=== PATIENT | female | born 1935 | race Caucasian/White ===

== ENCOUNTER 2018-10-03 22:20 | Inpatient (IN) | payer MEDICARE, BC ==
[~2018-10-03] VITALS: Ht 165.1 cm; Wt 72.6 kg
--- NOTE | 2018-10-03 22:28 | NUR ---
JATINDER FROM [facility] ASSTISTED LIVING. TO ER BED 10. AAOX3. NO RESP DISTRESS, BREATHING EVEN AND UNLABORED. AMBULATORY W/ ASSIST. C/O WITNESSED SYNCOPAL EPISODE. PER REPORT PT DID NOT HIT HER HEAD. NO NOTED VISUAL INJURY. PT ARRIVED WITH IV ON R WRIST 18G. EMS ADMINISTERED 500ML NS, COMPLETED ALREADY UPON ARRIVAL. BP WAS REPORTED AT 88/43. BS:130. AWAITING MD FOR EVAL. EKG BEING DONE AT BEDSIDE
--- NOTE | 2018-10-03 22:59 | NUR ---
AT BEDSIDE FOR EVAL
[2018-10-03] MEDS ORDERED: IV NS 0.9% 1,000 ML BAG IV ONE (23:00)
[2018-10-03 23:09] LABS: BASOPHILS % (AUTO) 0.3 % (0.0-2.0); EOSINOPHILS % (AUTO) 1.2 % (0.0-6.0); HEMATOCRIT 38 % (33-45); HEMOGLOBIN 12.7 g/dL (11.5-14.8); LYMPHOCYTES # (AUTO) 6.3 /CMM (0.8-4.8); LYMPHOCYTES % (AUTO) 62.3 % (20.0-44.0); MEAN CORPUSCULAR HGB CONC 34 g/dl (31.0-36.0); MEAN CORPUSCULAR VOLUME 97 fL (82-100); MONOCYTES # (AUTO) 0.4 /CMM (0.1-1.30); MONOCYTES % (AUTO) 4.1 % (2.0-12.0); NEUTROPHILS # (AUTO) 3.2 /CMM (1.8-8.9); NEUTROPHILS % (AUTO) 32.1 % (43.0-81.0); PLATELET COUNT (AUTO) 113 /CMM (150-450); WHITE BLOOD COUNT (AUTO) 10.1 K/uL (4.3-11.0)
--- NOTE | 2018-10-03 23:10 | NUR ---
pt to radiology on [facility]
[2018-10-03 23:16] LABS: CALCIUM, SERUM 8.4 mg/dL (8.5-10.1); CARBON DIOXIDE 31 mmol/L (21-32); CHLORIDE 105 mmol/L (98-107); CREATININE 1.9 mg/dL (0.6-1.3); GLUCOSE 89 mg/dL (74-106); POTASSIUM 4.3 mmol/L (3.5-5.1); SODIUM SERUM 139 mmol/L (136-145); UREA NITROGEN, BLOOD 22 mg/dL (7-18)
[2018-10-04] VITALS (7 sets, daily range): BP systolic 130–149; BP diastolic 61–77
--- NOTE | 2018-10-04 00:04 | NUR ---
pt in bed sleeping. easily arrousable.
--- NOTE | 2018-10-04 00:21 | NUR ---
Jose weiss in [facility] - 10/04/18 at 0022 by ANNABELLE BED ASSIGNMENT: TELE 314-2
--- NOTE | 2018-10-04 00:22 | NUR ---
BED ASSIGNMENT : 324-2
[2018-10-04] MEDS ORDERED: IV NS 0.9% 1,000 ML IV PRN ×2 (00:25→00:30)
[2018-10-04] MEDS ORDERED: ACETAMINOPHEN 325 MG TABLET PO PRN (00:30)
[2018-10-04] MEDS ORDERED: MAGNESIUM HYDROXIDE 30 ML UDC PO PRN (00:30)
[2018-10-04] MEDS ORDERED: MORPHINE SULFATE INJ 2 MG/ML DISP.SYRIN IV PRN (00:30)
[2018-10-04] MEDS ORDERED: ONDANSETRON HCL/PF 4 MG/2 ML VIAL IVP PRN (00:30)
[2018-10-04] MEDS ORDERED: MAG HYDROX/AL HYDROX/SIMETH 30 ML UDC PO PRN (00:30)
--- NOTE | 2018-10-04 00:32 | NUR ---
REPORT GIVEN TO JESSICA MIMS FOR JOSHUA. PT TO 324-2
--- NOTE | 2018-10-04 00:48 | NUR ---
PT TRANSPORTED TO UNIT ON [facility] WITH EMT AND RN AT BEDSIDE W. ACLS PROTOCOL. NAD NOTED DURING TRANSPORT.
--- NOTE | 2018-10-04 01:29 | NUR ---
AUTO DISMANTLERENERGY TECHNICIAN NOTES Received patient from ER via [facility] accompanied by 2 ER staff. Admitted to Tele 324-2 due to Syncope with secondary dx SARITA under the service of JEROMY Romeo. Transferred to bed comfortably. Admission routine done. Initial skin assessment done: noted dressing on LFA, patient refused to remove dressing for assessment due to pain. Per patient she got wound 1 month ago and is healing now. No other skin issues identified. Patient complaint headache. Administered pain meds as ordered. Ice pack provided, patient tolerating well. Initiated IVF NS 75ml/hr as ordered. On tele monitor with Sinus Armando (59bpm) noted. Kept on bed clean, dry and comfortable. Call light within easy reach. Will continue to monitor accordingly.
--- NOTE | 2018-10-04 01:30 | NUR ---
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
[2018-10-04] MEDS ORDERED: DULO60CA45 PO (01:32)
[2018-10-04] MEDS ORDERED: RIZA10TA27 PO (01:32)
[2018-10-04] MEDS ORDERED: TAMS-12 PO (01:32)
[2018-10-04] MEDS ORDERED: ROPI12TA PO (01:32)
[2018-10-04] MEDS ORDERED: BUSP15TA3 PO (01:32)
[2018-10-04] MEDS ORDERED: CARB-93 PO (01:32)
[2018-10-04] MEDS ORDERED: NALO25TA PO (01:32)
[2018-10-04] MEDS ORDERED: HYDR4TAB57 PO (01:32)
[2018-10-04] MEDS ORDERED: QUET100T PO (01:32)
[2018-10-04] MEDS ORDERED: ALPR1TAB2 PO (01:32)
[2018-10-04] MEDS ORDERED: LEVO112T5 PO (01:32)
[2018-10-04] MEDS ORDERED: GABA-534 PO (01:32)
--- NOTE | 2018-10-04 01:35 | NUR ---
SEWING MACHINE BOBBIN WINDER NOTES DPOA - (SON) ADRI [phone]. Patient is on DNR/DNI status with signed POLST copy at the patient's chart.
--- NOTE | 2018-10-04 06:45 | NUR ---
CORRECTIONAL FACILITY PSYCHIATRIST CLOSING NOTES Patient asleep on bed, easily awaken. On O2 via NC @ 2LPM, no SOB/respiratory distress noted. No discomfort noted at this time. On tele monitor with SR with second degree type 1 AVB. All nursing needs attended. Kept on bed clean, dry and comfortable. No new unusualities noted. Call light within easy reach. Endorsed to the next shift.
--- NOTE | 2018-10-04 07:45 | NUR ---
TELE/RN NOTE THE PATIENT IS ALERT AND ORIENTED X3 WITH EPISODES OF FORGETFULNESS. RECEIVING OXYGEN AT 2L/MIN VIA NASAL CANNULA AND DENIES SOB. RESPIRATION REGULAR AND UNLABORED. PATIENT COMPLAINS OF MIGRAINE HEADACHE AT THIS TIME. WILL INFORM MD FOR ORDERS. RIGHT WRIST G 18 PATENT AND SALINE LOCKED. BED LOW AND LOCKED. SIDE RAILS UP X3. CALL LIGHT WITHIN REACH. WILL CONTINUE TO MONITOR.
[2018-10-04] MEDS: HYDROCODONE/APAP 5/325MG 1 EACH TABLET PO PRN ×3 (07:46→17:40)
--- NOTE | 2018-10-04 08:50 | NUR ---
TELE/RN NOTE THE PATIENT VERBALIZED RELIEVE FROM NAUSEA AFTER ADMINISTRATION OF ZOFRAN 4 MG IV AND RELIEVE OF MIGRAINE HEADACHE RATING 2/10 AFTER ADMINISTRATION OF NORCO 5/325 MG 1 TAB PO. WILL CONTINUE TO MONITOR.
--- NOTE | 2018-10-04 09:35 | NUR ---
TELE/RN NOTE RECEIVED TEL ORDER FROM DR AMISHA MCCLAIN 10 MG PO Q6HR PRN FOR MIGRAINE. THE ORDER IS READ BACK, VERIFIED. NOTED AND CARRIED OUT.
[2018-10-04] MEDS: IV NS 0.9% 1,000 ML IV PRN (09:39)
[2018-10-04 10:15] LABS: BASOPHILS % (AUTO) 0.2 % (0.0-2.0); EOSINOPHILS % (AUTO) 1.1 % (0.0-6.0); HEMATOCRIT 38 % (33-45); HEMOGLOBIN 12.3 g/dL (11.5-14.8); LYMPHOCYTES # (AUTO) 5.7 /CMM (0.8-4.8); LYMPHOCYTES % (AUTO) 65.1 % (20.0-44.0); MEAN CORPUSCULAR HGB CONC 33 g/dl (31.0-36.0); MEAN CORPUSCULAR VOLUME 97 fL (82-100); MONOCYTES # (AUTO) 0.2 /CMM (0.1-1.30); MONOCYTES % (AUTO) 2.6 % (2.0-12.0); NEUTROPHILS # (AUTO) 2.7 /CMM (1.8-8.9); PLATELET COUNT (AUTO) 96 /CMM (150-450); WHITE BLOOD COUNT (AUTO) 8.7 K/uL (4.3-11.0)
[2018-10-04 10:21] LABS: CALCIUM, SERUM 8.1 mg/dL (8.5-10.1); CARBON DIOXIDE 26 mmol/L (21-32); CHLORIDE 104 mmol/L (98-107); CREATININE 1.1 mg/dL (0.6-1.3); GLUCOSE 108 mg/dL (74-106); POTASSIUM 3.9 mmol/L (3.5-5.1); SODIUM SERUM 139 mmol/L (136-145); UREA NITROGEN, BLOOD 18 mg/dL (7-18)
[2018-10-04 10:27] LABS: ALANINE AMINOTRANSFERASE 21 U/L (12-78); ALBUMIN 3.4 g/dL (3.4-5.0); ALKALINE PHOSPHATASE 76 U/L (46-116); ASPARTATE AMINOTRANSFERASE 19 U/L (15-37); BILIRUBIN,TOTAL 0.5 mg/dL (0.2-1.0); MAGNESIUM 1.8 mg/dL (1.8-2.4); PHOSPHORUS 3.7 mg/dL (2.5-4.9)
[2018-10-04] MEDS ORDERED: SUMATRIPTAN SUCCINATE 25 MG TABLET PO ONE (11:00)
[2018-10-04] MEDS ORDERED: ALPRAZOLAM 1 MG TABLET PO PRN (11:00)
--- NOTE | 2018-10-04 11:00 | NUR ---
TELE/REGENERATION OPERATOR BP BLOOD PRESSURE AND PULSE LYING DOWN: BP 141/79 AND PULSE 76 BLOOD PRESSURE AND PULSE STANDING UP: BP 140/79 AND PULSE 80 THE PATIENT DID NOT COMPLIANT OF DIZZINESS DURING POSITION CHANGES.
--- NOTE | 2018-10-04 12:13 | NUR ---
TELE/RN NOTE UPON ASSESSMENT NOTED THAT THE PATIENT HAS URGES TO VOID BUT PATIENT URINATES ONLY SMALL AMOUNT OF URINE. BLADDER SCAN PERFORMED AND SEEN [address] ALBA IS MADE AWARE AND RECEIVED AN ORDER FOR IN AND OUT PALMER CATH FOR URINE >500 ML. WILL CONTINUE TO MONITOR THE PATIENT CLOSELY.
[2018-10-04] MEDS: GABAPENTIN 300 MG CAPSULE PO SCH ×2 (13:16→16:25)
[2018-10-04] MEDS: CARBIDOPA/LEVODOPA 25/100 MG 1 UDTAB PO SCH ×2 (13:16→16:26)
[2018-10-04] MEDS: ropiniROLE 0.5 MG TABLET PO SCH ×2 (13:16→16:25)
--- NOTE | 2018-10-04 14:20 | NUR ---
TELE/RN NOTE UPON BLADDER SCAN NOTED URINE 700 ML. IN AND OUT PALMER CATH DONE AND TOTOAL OF 800 ML URINE IS REMOVED SLOWLY.
--- NOTE | 2018-10-04 14:34 | NUR ---
RN NOTES PULLED OUT NORCO 5, OPENED BUT PATIENT CHANGED HER MIND AND REFUSED THE NORCO 5. WASTED MEDICATION IN THE WASTE BIN WITNESSED BY JESSICA GONZALEZ.
--- NOTE | 2018-10-04 15:00 | NUR ---
MS/RN NOTE THE PATIENT IS ASSISTED TO SIT ON A COMMODE AND SHE URINATED 20 ML OF URINE.
--- NOTE | 2018-10-04 15:30 | NUR ---
TELE/RN NOTE THE PATIENT IS SEEN BY DR LION AND HE IS MADE AWARE THAT THE PATIENT HAD EPISODES OF CONFUSION TRYING TO GET OUT OF BET, REMOVING IV LINE AND NASAL CANNULA. DR LION WITH NO NEW ORDERS.
[2018-10-04 15:54] LABS: APPEARANCE,URINE CLEAR (CLEAR); BILIRUBIN,URINE NEGATIVE (NEGATIVE); BLOOD, URINE NEGATIVE Ery/uL (NEGATIVE); COLOR,URINE YELLOW (YELLOW); KETONES,URINE NEGATIVE (NEGATIVE); LEUKOCYTE ESTERASE ,URINE NEGATIVE (NEGATIVE); NITRITE, URINE NEGATIVE (NEGATIVE); PROTEIN,URINE NEGATIVE (NEGATIVE); UGLUCOSE NEGATIVE (NEGATIVE); UROBILINOGEN,URINE 0.2 EU/dL (0.2)
[2018-10-04 15:58] LABS: CREATININE, URINE 107.2 MG/DL (30.0-125.0); URINE TOTAL PROTEIN 22.1 mg/dL (0-11.9)
[2018-10-04] MEDS: busPIRone 5 MG TABLET PO SCH (16:27)
--- NOTE | 2018-10-04 16:40 | NUR ---
TELE/RN NOTE [id number] AGREED LFA WOUNDS SKIN ASSESSMENT AND PICTURES TO BE TAKEN.
[2018-10-04 16:57] LABS: EOSINOPHIL,URINE None Seen
--- NOTE | 2018-10-04 18:38 | NUR ---
TELE/RN CLOSING NOTE THE PATIENT IS IN BED AND THE SON AT THE BEDSIDE. PATIENT ALERT AND ORIENTED X3 WITH EPISODES OF TRYING TO GET OUT OF BED NOT REALIZING FALL RISK. THE PATIENT IS IN ROOM AIR AND SATURATION IS AT 96%. DENIES SOB.RESPIRATION REGULAR AND UNLABORED. DENIES PAIN. EXTERNAL TELE BOX READING IS SR 75 WITH 1ST DEGREE BLOCK. RIGHT WRIST G 18 PATENT AND SALINE LOCKED. THE PATIENT IS REFUSING IV FLUID NORMAL SALINE TO BE CONNECTED AT THIS TIME DESPITE EXPLAINING RISKS AND BENEFITS. BED LOW AND LOCKED. SIDE RAILS UP X3. SITTER AT THE BEDSIDE. CALL LIGHT WITHIN REACH. WILL ENDORSE TO ROLLER CHECKER.
--- NOTE | 2018-10-04 20:29 | NUR ---
TELE/RN PATIENT'S MILD AGITATION NOTED, SON REQUESTED FOR XANAX, BUT WHEN XANAX WAS ABOUT TO BE GIVEN, PATIENT REFUSED IT. WILL RETURN IT.
[2018-10-04] MEDS ORDERED: QUETIAPINE FUMARATE 100 MG TABLET PO SCH (22:00)
--- NOTE | 2018-10-04 22:28 | NUR ---
MS/RN PATIENT IS VERY AGITATED AT THIS TIME, HR IN 130'S, XANAX 1 MG PO WAS GIVEN ORDERED. WILL MONITOR.
--- NOTE | 2018-10-05 00:11 | NUR ---
MS/RN PATIENT IS SLEEPING AT THIS TIME, AROUSABLE, APPEAR COMFORTABLE, NO SIGNS OF DISTRESS NOTED, SITTER AT BEDSIDE. WILL CONTINUE TO MONITOR.
[2018-10-05] MEDS: IV NS 0.9% 1,000 ML IV PRN (01:36)
[2018-10-05 04:00] VITALS: BP 151/75
--- NOTE | 2018-10-05 06:17 | NUR ---
MS/RN BLADDER SCAN DONE, 999 MLS, STRAIGHT CATH WAS DONE ORDERED, 1,600 MLS OUTPUT, RENAE CLEAR URINE NOTED.
[2018-10-05 06:58] LABS: BASOPHILS % (AUTO) 0.1 % (0.0-2.0); EOSINOPHILS % (AUTO) 0.8 % (0.0-6.0); HEMATOCRIT 41 % (33-45); HEMOGLOBIN 13.5 g/dL (11.5-14.8); LYMPHOCYTES # (AUTO) 6.6 /CMM (0.8-4.8); LYMPHOCYTES % (AUTO) 68.9 % (20.0-44.0); MEAN CORPUSCULAR HGB CONC 33 g/dl (31.0-36.0); MEAN CORPUSCULAR VOLUME 96 fL (82-100); MONOCYTES # (AUTO) 0.2 /CMM (0.1-1.30); MONOCYTES % (AUTO) 2.3 % (2.0-12.0); NEUTROPHILS # (AUTO) 2.7 /CMM (1.8-8.9); NEUTROPHILS % (AUTO) 27.9 % (43.0-81.0); PLATELET COUNT (AUTO) 104 /CMM (150-450); RED BLOOD CELL COUNT(AUTO) 4.24 MIL/uL (4.0-5.2); WHITE BLOOD COUNT (AUTO) 9.6 K/uL (4.3-11.0)
--- NOTE | 2018-10-05 06:58 | NUR ---
MS/RN PATIENT IS AWAKE, COMFORTABLE, NO C/O PAIN, NO DISTRESS NOTED, SITTER AT BEDSIDE, ALL NEEDS ATTENDED AT THIS TIME, WILL CONTINUE TO MONITOR.
[2018-10-05 07:13] LABS: CHOLESTEROL 186 mg/dL (<200); CREATINE KINASE, TOTAL 308 U/L (26-192); HDL CHOLESTEROL 68 mg/dL (40-60); LDL 98 mg/dL (0-99); TRIGLYCERIDES 74 mg/dL (30-150)
[2018-10-05 07:27] LABS: ALANINE AMINOTRANSFERASE 22 U/L (12-78); ALBUMIN 3.7 g/dL (3.4-5.0); ALKALINE PHOSPHATASE 82 U/L (46-116); ASPARTATE AMINOTRANSFERASE 26 U/L (15-37); BILIRUBIN,TOTAL 0.6 mg/dL (0.2-1.0); CALCIUM, SERUM 8.8 mg/dL (8.5-10.1); CARBON DIOXIDE 27 mmol/L (21-32); CHLORIDE 108 mmol/L (98-107); CREATININE 0.9 mg/dL (0.6-1.3); GLUCOSE 94 mg/dL (74-106); MAGNESIUM 1.6 mg/dL (1.8-2.4); PHOSPHORUS 2.5 mg/dL (2.5-4.9); POTASSIUM 3.8 mmol/L (3.5-5.1); SODIUM SERUM 144 mmol/L (136-145); TOTAL PROTEIN, SERUM 6.6 g/dL (6.4-8.2); UREA NITROGEN, BLOOD 11 mg/dL (7-18)
[2018-10-05] MEDS ORDERED: LEVOTHYROXINE SODIUM 112 MCG TABLET PO SCH (07:30)
--- NOTE | 2018-10-05 07:36 | NUR ---
ACQUISITION MANAGER OPENINGS NOTE RECEIVED PT AWAKE IN BED IN NO ACUTE SIGNS OF DISTRESS. 1;1 SITTER AT BEDSIDE. A/O X2-3. VERBALLY RESPONSIVE, DENIES, PAIN OR ANY DISCOMFORTS AT THIS TIME. ON 02 VIA N/C @ 2LPM, BREATHING EVEN AND UNLABORED. ON TELEMONITORING WITH CURRENT READING OF SB WITH 1ST DEGREE HEART BLOCK WITH HR OF 57, NO C/O CARDIAC DISTRESS VOICED. IV ACCESS ON RFA G#22 INTACT AND PATENT, IVF OF NS @ 125ML/HR INFUSING WELL, NO S/S OF INFILTRATIONS NOTED. SAFETY MEASURES IN PLACE. BED LOW AND LOCKED. SIDE RAILS UP X3. CALL LIGHT WITHIN REACH. WILL CONTINUE TO MONITOR PT ACCORDINGLY.
[2018-10-05 08:00] VITALS: BP 134/78
[2018-10-05] MEDS: GABAPENTIN 300 MG CAPSULE PO SCH ×2 (08:22→13:03)
[2018-10-05] MEDS: ropiniROLE 0.5 MG TABLET PO SCH ×2 (08:22→13:04)
[2018-10-05] MEDS: CARBIDOPA/LEVODOPA 25/100 MG 1 UDTAB PO SCH ×2 (08:23→13:04)
[2018-10-05] MEDS: busPIRone 5 MG TABLET PO SCH (08:23)
[2018-10-05] MEDS ORDERED: DULOXETINE HCL 30 MG CAPSULE.DR PO SCH (09:00)
[2018-10-05] MEDS ORDERED: TAMSULOSIN 0.4 MG CAP.SR.24H PO SCH (09:00)
--- NOTE | 2018-10-05 09:19 | NUR ---
RN NOTES PT SEEN AND EVALUATED BY DR OLIVARES WITH ORDER TO CHECK ORTHOSTATIC BP: LYING 156/100, SITTING 119/68 AND STANDING 138/62. DR OLIVARES MADE AWARE OF RESULTS.
[2018-10-05] MEDS: HYDROCODONE/APAP 5/325MG 1 EACH TABLET PO PRN (09:28)
--- NOTE | 2018-10-05 09:30 | NUR ---
RN NOTES//PAIN MANAGEMENT PT C/O ACHING ABDOMINAL PAIN WITH SCALE OF 6/10. PRN NORCO 5/325MG PO GIVEN AT 0928. WILL CONTINUE TO MONITOR AND REASSESS PT.
[2018-10-05 09:43] VITALS: BP 156/100
[2018-10-05] MEDS ORDERED: VALSARTAN 80 MG TABLET PO SCH (10:00)
[2018-10-05] MEDS: Magnesium 1GM/D5W 100ML PREMIX 100 ML IV SCH ×2 (10:24→11:52)
--- NOTE | 2018-10-05 11:00 | NUR ---
RN NOTES MD ORDERED 80MG VALSARTAN, SON AT BEDSIDE REFUSED, SPOKE TO AND AGREED TO GIVE 40MG INSTEAD OF 80MG. HALF TABLET GIVEN BY MOUTH. WILL CONTINUE TO MONITOR
--- NOTE | 2018-10-05 12:54 | NUR ---
RN NOTES LON NOTED WIT LOW LEVEL MAGNESIUM 1.6. ADMINISTERED MG 1 GM/D5W 100ML IVPB X2 BAGS ORDERED. WILL CONTINUE TO MONITOR.
--- NOTE | 2018-10-05 15:10 | NUR ---
RN DISCHARGED NOTES PATIENT DISCHARGED TO [facility] ASSIST[facility] LIVING IN STABLE CONDITION. PT IS A/O X3, VERBALLY RESPONSIVE WITH NO COMPLAINED VOICE DURING DISCHARGE. V/S CHECKED, STABLE AND RECORDED. PHOTO OF SKIN ISSUES TAKEN AND FILED ON CHART. ALL BELONGINGS ACCOUNTED FOR AND SIGNED FORM BY JORDANA RUSH. IV ACCESS REMOVED WITH NO BLEEDING NOTED, PRESSURE DRESSING APPLIED. NAME ARMBAND REMOVED. HEALTH /DISCHARGE INSTRUCTIONS GIVEN TO PT AND SON, BOTH VERBALIZED UNDERSTANDING. PT LEFT UNIT VIA WHEELCHAIR AT 1505 ACCOMPANIED BY WINDOWS VMWARE ENGINEER AND JORDANA RUSH. CHARGE NURSE AWARE OF DISCHARGE.
[2018-10-06 13:07] LABS: PTH, INTACT 63 pg/mL (15-65)
[2018-10-07 06:07] LABS: *SPE A/G RATIO 1.5 (0.7-1.7); *SPE ALBUMIN 3.7 g/dL (2.9-4.4); *SPE ALPHA-1-GLOBULIN 0.3 g/dL (0.0-0.4); *SPE ALPHA-2-GLOBULIN 0.7 g/dL (0.4-1.0); *SPE BETA GLOBULIN 0.8 g/dL (0.7-1.3); *SPE GLOBULIN, TOTAL 2.4 g/dL (2.2-3.9); *SPE M-SPIKE Not Observed g/dL (Not Observed); *SPEGAMMA GLOBULIN 0.7 g/dL (0.4-1.8)
== END 2018-10-05 15:30 | DRG 73 ==
LOC: ER 22:22 → TELE 10-04 00:21 → MED 10-05 10:33
PROVIDERS: ADMIT Nurse Practitioner Acute Care; ATTEND Nurse Practitioner Acute Care
DX: G90.8 Other disorders of autonomic nervous system (principal); N17.0 Acute kidney failure with tubular necrosis; E03.9 Hypothyroidism, unspecified; F02.80 Dementia in other diseases classified elsewhere, unspecified severity, without behavioral disturbance, psychotic disturbance, mood disturbance, and anxiety; G20 Parkinson's disease; D72.829 Elevated white blood cell count, unspecified; I10 Essential (primary) hypertension; Z88.8 Allergy status to other drugs, medicaments and biological substances; I44.0 Atrioventricular block, first degree; F32.9 Major depressive disorder, single episode, unspecified; N28.1 Cyst of kidney, acquired
CPT/HCPCS: 36415; 70450-TC; 71045-TC; 76770-TC; 80048-TC; 80053-TC; 80061-TC; 81000-TC; 82550-TC; 82570-TC; 82962-TC; 83735-TC; 83970; 84100-TC; 84155; 84155-TC; 84165; 84300-TC; 84484-TC; 85025-TC; 87081-TC; 93307-TC; 97110-TC; 97116-TC; 97530-TC; G0378; J2405; J3475; J7030

== ENCOUNTER 2018-10-06 05:13 | Inpatient (IN) | payer MEDICARE, OTHER, MEDICAID ==
[~2018-10-06] VITALS: Ht 162.6 cm; Wt 69.9 kg
[~2018-10-06 05:13] MED LIST: ALPR1TAB2 PO; BUSP15TA3 PO; CARB-93 PO; DULO60CA45 PO; GABA-534 PO; HYDR4TAB57 PO; LEVO112T5 PO; NALO25TA PO; QUET100T PO; RIZA10TA27 PO; ROPI12TA PO; TAMS-12 PO
--- NOTE | 2018-10-06 05:29 | NUR ---
BIBA FOR C/O R HIP PAIN S/P GLF. PT WAS FOUND ON THE FLOOR BY STAFF FACE DOWN. PER PT SHE TRIPED ON FOOT OVER THE OTHER . DENIED KO OR LOOSING CONCIOUS. PLACED ON A MONITOR. VSS.
--- NOTE | 2018-10-06 06:09 | NUR ---
dr schmitz at the bed side speaking to the pt and the son
[2018-10-06] MEDS ORDERED: ONDANSETRON HCL/PF 4 MG/2 ML VIAL ONE (06:28)
[2018-10-06] MEDS ORDERED: ACETAMINOPHEN ES 500 MG TABLET ONE (06:29)
[2018-10-06] MEDS ORDERED: ACETAMINOPHEN ES 500 MG TABLET PO ONE (06:30)
[2018-10-06] MEDS ORDERED: ONDANSETRON HCL/PF - ER 4 MG/2 ML VIAL IV ONE (06:30)
[2018-10-06 07:07] LABS: BASOPHILS % (AUTO) 0.1 % (0.0-2.0); EOSINOPHILS % (AUTO) 0.2 % (0.0-6.0); HEMATOCRIT 41 % (33-45); HEMOGLOBIN 13.8 g/dL (11.5-14.8); LYMPHOCYTES # (AUTO) 6.7 /CMM (0.8-4.8); LYMPHOCYTES % (AUTO) 60.6 % (20.0-44.0); MEAN CORPUSCULAR HGB CONC 33 g/dl (31.0-36.0); MEAN CORPUSCULAR VOLUME 95 fL (82-100); MONOCYTES # (AUTO) 0.3 /CMM (0.1-1.30); MONOCYTES % (AUTO) 2.3 % (2.0-12.0); NEUTROPHILS # (AUTO) 4.1 /CMM (1.8-8.9); NEUTROPHILS % (AUTO) 36.8 % (43.0-81.0); PLATELET COUNT (AUTO) 109 /CMM (150-450); RED BLOOD CELL COUNT(AUTO) 4.35 MIL/uL (4.0-5.2); WHITE BLOOD COUNT (AUTO) 11.1 K/uL (4.3-11.0)
[2018-10-06 07:13] LABS: CALCIUM, SERUM 9.2 mg/dL (8.5-10.1); CARBON DIOXIDE 25 mmol/L (21-32); CHLORIDE 104 mmol/L (98-107); CREATININE 0.9 mg/dL (0.6-1.3); GLUCOSE 114 mg/dL (74-106); POTASSIUM 3.6 mmol/L (3.5-5.1); SODIUM SERUM 141 mmol/L (136-145); UREA NITROGEN, BLOOD 14 mg/dL (7-18)
[2018-10-06 07:18] LABS: ALANINE AMINOTRANSFERASE 13 U/L (12-78); ALBUMIN 4.1 g/dL (3.4-5.0); ALKALINE PHOSPHATASE 82 U/L (46-116); ASPARTATE AMINOTRANSFERASE 25 U/L (15-37); BILIRUBIN,DIRECT 0.2 mg/dL (0.0-0.2); BILIRUBIN,TOTAL 0.7 mg/dL (0.2-1.0); TOTAL PROTEIN, SERUM 7.2 g/dL (6.4-8.2)
[2018-10-06 07:26] LABS: APPEARANCE,URINE CLEAR (CLEAR); BILIRUBIN,URINE NEGATIVE (NEGATIVE); BLOOD, URINE NEGATIVE Ery/uL (NEGATIVE); COLOR,URINE YELLOW (YELLOW); KETONES,URINE 1+ (NEGATIVE); LEUKOCYTE ESTERASE ,URINE TRACE (NEGATIVE); NITRITE, URINE NEGATIVE (NEGATIVE); PROTEIN,URINE TRACE mg/dl (NEGATIVE); UGLUCOSE NEGATIVE (NEGATIVE); UROBILINOGEN,URINE 0.2 EU/dL (0.2)
[2018-10-06 07:47] LABS: BACTERIA,URINE Many /HPF (None Seen); RBC,URINE 0-2 /HPF (0-2); SQUAMOUS EPITHELIAL CELL,UR Few /HPF (None Seen); WBC,URINE 21-50 /HPF (0-3)
[2018-10-06] MEDS ORDERED: CEFTRIAXONE 1GM BAG (ER ONLY) 1 GM/50 ML PIGGYBACK IV ONE (08:30)
[2018-10-06] MEDS ORDERED: CEFTRIAXONE 1GM BAG (ER ONLY) 50 ML IV ONE (08:38)
[2018-10-06] MEDS ORDERED: ASPIRIN EC 81 MG TABLET.DR PO ONE ×2 (09:30→09:34)
--- NOTE | 2018-10-06 11:00 | NUR ---
[facility] PAGED. ERICA GOULD ON-CALL. AWAITING FOR CALL BACK.
--- NOTE | 2018-10-06 11:05 | NUR ---
CALLED NURSING SUP FOR BED TELE
--- NOTE | 2018-10-06 11:25 | NUR ---
BED 113-2
--- NOTE | 2018-10-06 12:39 | NUR ---
report given to Antonio LOPEZ for mallorie.
[2018-10-06] MEDS ORDERED: MAGNESIUM HYDROXIDE 30 ML UDC PO PRN (13:00)
[2018-10-06] MEDS ORDERED: MAG HYDROX/AL HYDROX/SIMETH 30 ML UDC PO PRN (13:00)
[2018-10-06] MEDS ORDERED: Z GUARD REMEDY 2 OZ OINT TP PRN (13:00)
[2018-10-06 13:03] VITALS: BP 169/87
--- NOTE | 2018-10-06 13:19 | NUR ---
Transferred patient via gurney accompanied by RN and emt in no apparent distress noted. Antonio at bedside to assume care.
[2018-10-06] MEDS: CARBIDOPA/LEVODOPA 25/100 MG 1 UDTAB PO SCH ×2 (13:48→17:49)
[2018-10-06] MEDS: ropiniROLE 0.5 MG TABLET PO SCH ×2 (13:48→17:48)
[2018-10-06] MEDS: GABAPENTIN 300 MG CAPSULE PO SCH ×2 (13:48→17:49)
[2018-10-06] MEDS: ONDANSETRON HCL/PF 4 MG/2 ML VIAL IVP PRN (14:59)
[2018-10-06 16:00] VITALS: BP 124/72
--- NOTE | 2018-10-06 16:00 | NUR ---
SHOW CARD LETTEREREXTERMINATION INSPECTOR NOTE RECEIVED PATIENT FROM [facility] ER. REPORT TAKEN FROM ELA. PATIENT A/O X 1-2, NO SOB OR ACUTE DISTRESS NOTED. BREATHING EVEN AND UNLABORED. PATIENT ADMITTED FOR UTI. CAREGIVER AT BEDSIDE. PATIENT CLEAN AND DRY USING DIAPER. SKIN INSPECTED AND FOUND INTACT. NO C/O PAIN. MEDICATIONS ORDERED AND GIVEN ORDERED. SAFETY MEASURES IN PLACE. BED IN LOW LOCKED POSITION, CALL LIGHT WITHIN REACH, BED ALARM ON. WILL CONTINUE TO MONITOR.
--- NOTE | 2018-10-06 17:00 | NUR ---
LOADING UNIT OPERATOR CRIMPING NOTE PATIENT SON AT BEDSIDE. PATIENT BECOMING AGITATED AND TRYING TO GET OUT OF BED. SITTER PLACED AT BEDSIDE. PATIENT RETURNED TO BED, MADE COMFORTABLE. PATIENT GIVEN MEDICATIONS ORDERED.
[2018-10-06] MEDS: DOCUSATE SODIUM 100 MG CAPSULE PO SCH (17:48)
[2018-10-06] MEDS: busPIRone 5 MG TABLET PO SCH (17:49)
--- NOTE | 2018-10-06 19:18 | NUR ---
Met with son at bedside. Readmitted within 24hours. Patient resides at [facility] [phone].She has a caregiver 3-4hours/day 3-4days/week. Patient ambulates with a walker and caregiver provides assistance with adl's as needed. Her pcp is Monserrat at [facility] tel: [phone]. Family is considering SNF placement if needed. If patient goes to SNF, son prefers [facility]. Addendum: 10/06/18 at 1919 by JAYLON PADILLA RN Amended: Links added.
[2018-10-06 20:00] VITALS: BP 141/90
--- NOTE | 2018-10-06 20:00 | NUR ---
television anchor notes received pts awake alert and agitated , with 1:1 sitter at bedside . on tele - sr and ist degree block on the monitor. no sob no distress noted . breathing even and unlabored on r/a sating 94%, v/s stable afebrile , all due meds given as ordered , all needs attended too call light within reach kept pts clean dry and comfortable, will continue to monitor pts . son at bedside updated with pts condition.
--- NOTE | 2018-10-06 20:11 | NUR ---
SERVICE UNIT OPERATOR OIL WELL CLOSING NOTE PATIENT IN BED AND AWAKE. A/O X 1-2, NO SOB OR ACUTE DISTRESS NOTED. BREATHING EVEN AND UNLABORED. SON AT BEDSIDE. PATIENT CLEAN AND DRY USING DIAPER. IV SL INTACT AND PATENT. . NO C/O PAIN. SAFETY MEASURES IN PLACE. BED IN LOW LOCKED POSITION, CALL LIGHT WITHIN REACH, BED ALARM ON. CARE ENDORSED TO PLANTING MATERIAL REMOVER RN.
[2018-10-06] MEDS: ALPRAZOLAM 1 MG TABLET PO PRN (20:15)
[2018-10-06] MEDS: QUETIAPINE FUMARATE 100 MG TABLET PO SCH (21:30)
[2018-10-07 00:59] VITALS: BP 125/80
[2018-10-07 04:00] VITALS: BP 107/54
[2018-10-07 07:13] LABS: BASOPHILS % (AUTO) 0.1 % (0.0-2.0); EOSINOPHILS % (AUTO) 0.6 % (0.0-6.0); HEMATOCRIT 42 % (33-45); LYMPHOCYTES # (AUTO) 4.7 /CMM (0.8-4.8); LYMPHOCYTES % (AUTO) 56.5 % (20.0-44.0); MEAN CORPUSCULAR HGB CONC 33 g/dl (31.0-36.0); MEAN CORPUSCULAR VOLUME 96 fL (82-100); MONOCYTES # (AUTO) 0.2 /CMM (0.1-1.30); MONOCYTES % (AUTO) 2.1 % (2.0-12.0); NEUTROPHILS # (AUTO) 3.4 /CMM (1.8-8.9); NEUTROPHILS % (AUTO) 40.7 % (43.0-81.0); PLATELET COUNT (AUTO) 84 /CMM (150-450); WHITE BLOOD COUNT (AUTO) 8.3 K/uL (4.3-11.0)
[2018-10-07 07:23] LABS: CALCIUM, SERUM 9.1 mg/dL (8.5-10.1); CARBON DIOXIDE 26 mmol/L (21-32); CHLORIDE 104 mmol/L (98-107); CREATININE 0.9 mg/dL (0.6-1.3); GLUCOSE 115 mg/dL (74-106); MAGNESIUM 1.8 mg/dL (1.8-2.4); PHOSPHORUS 3.1 mg/dL (2.5-4.9); POTASSIUM 3.6 mmol/L (3.5-5.1); SODIUM SERUM 140 mmol/L (136-145); UREA NITROGEN, BLOOD 18 mg/dL (7-18)
[2018-10-07 07:33] LABS: CHOLESTEROL 180 mg/dL (<200); HDL CHOLESTEROL 68 mg/dL (40-60); LDL 92 mg/dL (0-99); THYROID STIMULATING HORMONE 3.168 uIU/mL (0.358-3.74); TRIGLYCERIDES 97 mg/dL (30-150)
[2018-10-07 08:00] VITALS: BP 139/75
[2018-10-07 08:01] LABS: NEUTROPHILS % (MANUAL) 38 (42-76)
[2018-10-07 08:02] LABS: BAND % (MANUAL) 6 % (0.0-5.0); LYMPHOCYTES % (MANUAL) 45 % (16-48); MONOCYTES % (MANUAL) 11 % (0-11.0)
--- NOTE | 2018-10-07 09:00 | NUR ---
satellite television installer notes received pts awake alert and agitated , with 1:1 sitter at bedside . on tele - sr and ist degree block on the monitor. no sob no distress noted . breathing even and unlabored on ra/, v/s stable afebrile , call light within reach kept pts clean dry and comfortable, will continue to monitor pts . son at bedside updated with pts condition. dr day at bedside spoke with son stated that will order ivf , also st at bedside ok to start on soft diet , ok to use intensive spirometer
[2018-10-07] MEDS: CARBIDOPA/LEVODOPA 25/100 MG 1 UDTAB PO SCH ×3 (09:16→16:37)
[2018-10-07] MEDS: busPIRone 5 MG TABLET PO SCH ×2 (09:17→16:48)
[2018-10-07] MEDS: ASPIRIN 81 MG TAB.CHEW PO SCH (09:17)
[2018-10-07] MEDS: DOCUSATE SODIUM 100 MG CAPSULE PO SCH ×2 (09:17→16:37)
[2018-10-07] MEDS: GABAPENTIN 300 MG CAPSULE PO SCH ×3 (09:18→16:37)
[2018-10-07] MEDS: TAMSULOSIN 0.4 MG CAP.SR.24H PO SCH (09:18)
[2018-10-07] MEDS: LEVOTHYROXINE SODIUM 112 MCG TABLET PO SCH (09:19)
[2018-10-07] MEDS: DULOXETINE HCL 30 MG CAPSULE.DR PO SCH (09:19)
[2018-10-07] MEDS: ropiniROLE 0.5 MG TABLET PO SCH ×3 (09:20→16:37)
[2018-10-07] MEDS: CEFTRIAXONE 1 G in IV D5W 50 ML IV SCH (09:37)
--- NOTE | 2018-10-07 10:26 | NUR ---
telecommunications engineer note dr day notified that patient is coughing, encouraged to give intensive spirometer, by manager sas up on commode, urinated small amt of urine
[2018-10-07] MEDS: Potassium Chloride 20 MEQ in IV NS 0.9% 1,000 ML IV PRN ×2 (10:53→20:11)
--- NOTE | 2018-10-07 10:58 | NUR ---
MASON TENDER RESTORATION LABOR NOTE PT AT BEDSIDE ABLE TO STAND UP WITH MAX ASSISTANCE, STARED ON IVF ORDERED
[2018-10-07 12:00] VITALS: BP 96/49
[2018-10-07] MEDS: ACETAMINOPHEN 325 MG TABLET PO PRN (12:25)
--- NOTE | 2018-10-07 13:00 | NUR ---
SOLUTION MAKE UP OPERATOR NOTE HAVING LUNCH, FED BY BATCH MIXER, ALL NEEDS ATTENDED
[2018-10-07] MEDS: ALPRAZOLAM 1 MG TABLET PO PRN (14:47)
--- NOTE | 2018-10-07 15:04 | NUR ---
SALES AND MERCHANDISING ASSOCIATE NOTE VERY ANXIOUS XANAX PO GIVEN ORDERED ,SITTER AT BEDSIDE WILL MONITOR
[2018-10-07 16:00] VITALS: BP 101/45
--- NOTE | 2018-10-07 16:00 | NUR ---
SWEEPER CLEANER INDUSTRIAL NOTE \ SON AT BESIDE .INSTRUCTED HOW TO USE INTENSIVE SPIROMETER, USES EFFECTIVELY
--- NOTE | 2018-10-07 17:49 | NUR ---
SHIFT MECHANIC NOTE PER POLST AND SON WISHES ,PATIENT DNR\DNI . CALLED TO KHUSHBOO FIGUEROA RN NOVELTIES SALES REPRESENTATIVE WITH ORDER DNI\DNR, SLEEPING NOW WILL CONT TO MONITOR ,SITTER AT BEDSIDE
[2018-10-07 20:00] VITALS: BP 97/50
--- NOTE | 2018-10-07 20:00 | NUR ---
FUNERAL CAR DRIVER NOTES RECEIVED PTS IN BED ASLEEP NO SOB NO DISTRESS NOTED BREATHING EVEN AND UNLABORED ON TELE ,SB -59 ON THE MONITOR SATING 99% V/S STABLE AFEBRILE ALL NEEDS ATTENDED TOO CALL LIGHT WITHIN REACH , SITTER AT BEDSIDE ,PTS AT THIS TIME IS SLEEPING AND CALM .ALL DUE MEDS GIVEN ORDERED. KEPT PTS CLEAN DRY AND COMFORTABLE. WITH IVF OF NS WITH 20 MEQ OF KCL AT 125CC/HR INFUSING WELL , WILL CONTINUE TO MONITOR PTS.
[2018-10-07] MEDS: QUETIAPINE FUMARATE 100 MG TABLET PO SCH (21:33)
[2018-10-08] VITALS: BP 103/52
[2018-10-08 04:00] VITALS: BP 122/66
[2018-10-08] MEDS: Potassium Chloride 20 MEQ in IV NS 0.9% 1,000 ML IV PRN (04:48)
--- NOTE | 2018-10-08 05:28 | NUR ---
HEALTH INFORMATION MANAGERS NOTES. PTS IN BED COOPERATIVE , SITTER AT BEDSIDE , PTS REMAINS ON IVF OF NS WITH KCL 20MEQ AT 125CC/HR ON THE 3RD LITER INFUSING , ALL NEEDS ATTENDED TOO KEPT PTS CLEAN DRY AND COMFORTABLE, WILL ENDORSE TO RN DAY SHIFT FOR CONTINUITY OF CARE.
[2018-10-08 07:39] LABS: BASOPHILS % (AUTO) 0.1 % (0.0-2.0); EOSINOPHILS % (AUTO) 1.8 % (0.0-6.0); HEMATOCRIT 36 % (33-45); HEMOGLOBIN 12.1 g/dL (11.5-14.8); LYMPHOCYTES # (AUTO) 5.4 /CMM (0.8-4.8); LYMPHOCYTES % (AUTO) 56.1 % (20.0-44.0); MEAN CORPUSCULAR HGB CONC 34 g/dl (31.0-36.0); MEAN CORPUSCULAR VOLUME 96 fL (82-100); MONOCYTES # (AUTO) 0.2 /CMM (0.1-1.30); MONOCYTES % (AUTO) 1.9 % (2.0-12.0); NEUTROPHILS # (AUTO) 3.9 /CMM (1.8-8.9); NEUTROPHILS % (AUTO) 40.1 % (43.0-81.0); PLATELET COUNT (AUTO) 85 /CMM (150-450); RED BLOOD CELL COUNT(AUTO) 3.78 MIL/uL (4.0-5.2); WHITE BLOOD COUNT (AUTO) 9.6 K/uL (4.3-11.0)
--- NOTE | 2018-10-08 07:40 | NUR ---
CLAY PREPARATION SUPERVISOR OPENING NOTE PATIENT IN BED RESTING COMFORTABLY. PATIENT MAINTAINED ON A 1:1 SITTER. PATIENT IN NO ACUTE DISTRESS. NO SOB NOTED. PATIENT BREATHING IS EVEN AND UNLABORED. SAFETY PRECAUTIONS IN PLACE. PATIENT BED IS LOCKED AND IN LOWEST POSITION. CALL LIGHT WITHIN REACH. WILL CONTINUE TO MONITOR.
[2018-10-08 07:55] LABS: ALANINE AMINOTRANSFERASE 22 U/L (12-78); ALBUMIN 3.1 g/dL (3.4-5.0); ALKALINE PHOSPHATASE 64 U/L (46-116); ASPARTATE AMINOTRANSFERASE 33 U/L (15-37); BILIRUBIN,TOTAL 0.5 mg/dL (0.2-1.0); CALCIUM, SERUM 8.2 mg/dL (8.5-10.1); CARBON DIOXIDE 24 mmol/L (21-32); CHLORIDE 107 mmol/L (98-107); CREATININE 0.9 mg/dL (0.6-1.3); GLUCOSE 93 mg/dL (74-106); MAGNESIUM 1.6 mg/dL (1.8-2.4); PHOSPHORUS 2.2 mg/dL (2.5-4.9); POTASSIUM 4.5 mmol/L (3.5-5.1); SODIUM SERUM 141 mmol/L (136-145); TOTAL PROTEIN, SERUM 5.9 g/dL (6.4-8.2); UREA NITROGEN, BLOOD 22 mg/dL (7-18)
[2018-10-08 08:00] VITALS: BP 120/67
[2018-10-08] MEDS: CEFTRIAXONE 1 G in IV D5W 50 ML IV SCH (09:01)
[2018-10-08] MEDS: ropiniROLE 0.5 MG TABLET PO SCH ×3 (09:02→17:13)
[2018-10-08] MEDS: busPIRone 5 MG TABLET PO SCH ×2 (09:02→17:19)
[2018-10-08] MEDS: GABAPENTIN 300 MG CAPSULE PO SCH ×3 (09:03→17:20)
[2018-10-08] MEDS: CARBIDOPA/LEVODOPA 25/100 MG 1 UDTAB PO SCH ×3 (09:03→17:20)
[2018-10-08] MEDS: TAMSULOSIN 0.4 MG CAP.SR.24H PO SCH (09:03)
[2018-10-08] MEDS: DOCUSATE SODIUM 100 MG CAPSULE PO SCH ×2 (09:04→17:13)
[2018-10-08] MEDS: ASPIRIN 81 MG TAB.CHEW PO SCH (09:04)
[2018-10-08] MEDS: LEVOTHYROXINE SODIUM 112 MCG TABLET PO SCH (09:04)
[2018-10-08] MEDS: DULOXETINE HCL 30 MG CAPSULE.DR PO SCH (09:04)
[2018-10-08] MEDS ORDERED: K PHOS NEUTRAL 250 MG TABLET PO ONE (11:00)
[2018-10-08 12:00] VITALS: BP 126/65
[2018-10-08] MEDS ORDERED: IV NS 0.9% 1,000 ML BAG IV PRN (13:00)
[2018-10-08] MEDS ORDERED: IV NS 0.9% 1,000 ML IV PRN (13:00)
[2018-10-08] MEDS: ONDANSETRON HCL/PF 4 MG/2 ML VIAL IVP PRN (13:04)
[2018-10-08 16:00] VITALS: BP 131/69
[2018-10-08] MEDS: ALPRAZOLAM 1 MG TABLET PO PRN ×2 (17:20→21:26)
[2018-10-08] MEDS: HYDROCODONE/APAP 5/325MG 1 EACH TABLET PO PRN (18:05)
--- NOTE | 2018-10-08 19:10 | NUR ---
MS RN CLOSING NOTE PATIENT IN BED RESTING COMFORTABLY. PATIENT IN NO ACUTE DISTRESS. NO SOB NOTED. PATIENT BREATHING IS EVEN AND UNLABORED. PATIENT MAINTAINED ON A 1:1 SITTER. ALL NURSING NEEDS MET. SAFETY PRECAUTIONS IN PLACE. PATIENT KEPT CLEAN AND DRY THROUGHOUT SHIFT. OFFLOADED EXTREMITIES MUCH PATIENT ALLOWED. PATIENT REFUSED TO HAVE SKIN ASSESSED, SON WAS AWARE. PATIENT BED IS LOCKED AND IN LOWEST POSITION. CALL LIGHT WITHIN REACH. ENDORSED CARE TO PM SHIFT FOR JOSHUA.
[2018-10-08 20:00] VITALS: BP 150/74
--- NOTE | 2018-10-08 20:00 | NUR ---
MS RN INITIAL NOTE PATIENT IN BED RESTLESS, SON AT BED SIDE, REQUESTING FOR XANAX, WILL BE GIVEN SCHEDULED. PATIENT IN NO ACUTE DISTRESS. NO SOB NOTED. PATIENT BREATHING IS EVEN AND UNLABORED. PATIENT MAINTAINED ON A 1:1 SITTER. ALL NURSING NEEDS MET. SAFETY PRECAUTIONS IN PLACE. PATIENT KEPT CLEAN AND DRY THROUGHOUT SHIFT. PATIENT REFUSED TO HAVE SKIN ASSESSED, SON WAS AWARE. PATIENT BED IS LOCKED AND IN LOWEST POSITION. CALL LIGHT WITHIN REACH. ENDORSED CARE TO PM SHIFT FOR JOSHUA.
[2018-10-08] MEDS: AMOX/CLAVULANATE 875 MG TABLET PO SCH (21:25)
[2018-10-08] MEDS: QUETIAPINE FUMARATE 100 MG TABLET PO SCH (21:26)
[2018-10-09 00:39] VITALS: BP 140/72
[2018-10-09 04:00] VITALS: BP 155/72
[2018-10-09] MEDS: HYDROCODONE/APAP 5/325MG 1 EACH TABLET PO PRN (04:37)
--- NOTE | 2018-10-09 07:12 | NUR ---
MS RN CLOSING NOTE PATIENT IN BED IN NO ACUTE DISTRESS. NO SOB NOTED. PATIENT BREATHING IS EVEN AND UNLABORED. PATIENT MAINTAINED ON A 1:1 SITTER. ALL NURSING NEEDS MET. SAFETY PRECAUTIONS IN PLACE. PATIENT KEPT CLEAN AND DRY THROUGHOUT SHIFT. PATIENT REFUSED TO HAVE SKIN ASSESSED, SON WAS AWARE. PATIENT BED IS LOCKED AND IN LOWEST POSITION. CALL LIGHT WITHIN REACH. ENDORSED CARE TO PM SHIFT FOR JOSHUA.
[2018-10-09] MEDS: ACETAMINOPHEN 325 MG TABLET PO PRN (07:31)
[2018-10-09] MEDS: LEVOTHYROXINE SODIUM 112 MCG TABLET PO SCH (07:36)
[2018-10-09 07:42] LABS: BASOPHILS % (AUTO) 0.1 % (0.0-2.0); EOSINOPHILS % (AUTO) 1.7 % (0.0-6.0); HEMATOCRIT 36 % (33-45); HEMOGLOBIN 12.1 g/dL (11.5-14.8); LYMPHOCYTES # (AUTO) 5.2 /CMM (0.8-4.8); LYMPHOCYTES % (AUTO) 61.4 % (20.0-44.0); MEAN CORPUSCULAR HGB CONC 33 g/dl (31.0-36.0); MEAN CORPUSCULAR VOLUME 96 fL (82-100); MONOCYTES # (AUTO) 0.2 /CMM (0.1-1.30); MONOCYTES % (AUTO) 2.2 % (2.0-12.0); NEUTROPHILS # (AUTO) 2.9 /CMM (1.8-8.9); NEUTROPHILS % (AUTO) 34.6 % (43.0-81.0); PLATELET COUNT (AUTO) 86 /CMM (150-450); RED BLOOD CELL COUNT(AUTO) 3.78 MIL/uL (4.0-5.2); WHITE BLOOD COUNT (AUTO) 8.4 K/uL (4.3-11.0)
[2018-10-09 07:47] LABS: ALANINE AMINOTRANSFERASE 22 U/L (12-78); ALBUMIN 3.3 g/dL (3.4-5.0); ALKALINE PHOSPHATASE 67 U/L (46-116); ASPARTATE AMINOTRANSFERASE 32 U/L (15-37); BILIRUBIN,TOTAL 0.3 mg/dL (0.2-1.0); CALCIUM, SERUM 8.5 mg/dL (8.5-10.1); CARBON DIOXIDE 29 mmol/L (21-32); CHLORIDE 107 mmol/L (98-107); CREATININE 0.8 mg/dL (0.6-1.3); GLUCOSE 97 mg/dL (74-106); MAGNESIUM 1.6 mg/dL (1.8-2.4); PHOSPHORUS 2.9 mg/dL (2.5-4.9); POTASSIUM 3.6 mmol/L (3.5-5.1); SODIUM SERUM 143 mmol/L (136-145); TOTAL PROTEIN, SERUM 6.2 g/dL (6.4-8.2); UREA NITROGEN, BLOOD 11 mg/dL (7-18)
[2018-10-09 08:00] VITALS: BP 142/68
[2018-10-09] MEDS: DULOXETINE HCL 30 MG CAPSULE.DR PO SCH (08:49)
[2018-10-09] MEDS: AMOX/CLAVULANATE 875 MG TABLET PO SCH (08:49)
[2018-10-09] MEDS: GABAPENTIN 300 MG CAPSULE PO SCH ×2 (08:49→13:43)
[2018-10-09] MEDS: TAMSULOSIN 0.4 MG CAP.SR.24H PO SCH (08:49)
[2018-10-09] MEDS: ropiniROLE 0.5 MG TABLET PO SCH ×2 (08:50→13:41)
[2018-10-09] MEDS: DOCUSATE SODIUM 100 MG CAPSULE PO SCH (08:50)
[2018-10-09] MEDS: ASPIRIN 81 MG TAB.CHEW PO SCH (08:50)
[2018-10-09] MEDS: CARBIDOPA/LEVODOPA 25/100 MG 1 UDTAB PO SCH ×2 (08:50→13:43)
[2018-10-09] MEDS: busPIRone 5 MG TABLET PO SCH (08:53)
[2018-10-09 09:07] LABS: LYMPHOCYTES % (MANUAL) 53 % (16-48); MONOCYTES % (MANUAL) 1 % (0-11.0); NEUTROPHILS % (MANUAL) 46 (42-76)
[2018-10-09] MEDS: ALPRAZOLAM 1 MG TABLET PO PRN (09:51)
[2018-10-09] MEDS ORDERED: DOCU-270 PO (11:12)
[2018-10-09] MEDS ORDERED: ASPI-1169 PO (11:12)
[2018-10-09] MEDS ORDERED: Amox/Clavulanate PO (11:12)
[2018-10-09 11:18] VITALS: BP 137/68
[2018-10-09 11:19] VITALS: BP_SYST 148; BP_SYST 164; BP_DIAS 71; BP_DIAS 75
[2018-10-09 12:00] VITALS: BP 124/70
[2018-10-09] MEDS ORDERED: MAGNESIUM OXIDE 400 MG TABLET PO ONE (12:00)
--- NOTE | 2018-10-09 13:50 | NUR ---
GAVE TELEPHONE REPORT TO NATASHA LOPEZ AT [facility].
--- NOTE | 2018-10-09 14:20 | NUR ---
GAVE REPORT TO REYES, EMT WITH [facility] UNIT 123.
--- NOTE | 2018-10-09 14:38 | NUR ---
PT LEFT THE UNIT IN STABLE CONDITION ON GURNEY VIA [facility] AT 14:40
== END 2018-10-09 14:42 | DRG 689 ==
LOC: ER 05:15 → TELE1 12:13 → MEDSG1 10-08 08:30
PROVIDERS: ADMIT Nurse Practitioner Acute Care; ATTEND Nurse Practitioner Acute Care
DX: N39.0 Urinary tract infection, site not specified (principal); I21.A1 Myocardial infarction type 2; J98.11 Atelectasis; J90 Pleural effusion, not elsewhere classified; N17.9 Acute kidney failure, unspecified; F41.9 Anxiety disorder, unspecified; E03.9 Hypothyroidism, unspecified; D69.6 Thrombocytopenia, unspecified; F02.80 Dementia in other diseases classified elsewhere, unspecified severity, without behavioral disturbance, psychotic disturbance, mood disturbance, and anxiety; G20 Parkinson's disease; I10 Essential (primary) hypertension; K59.09 Other constipation; M19.90 Unspecified osteoarthritis, unspecified site; E86.0 Dehydration; E83.42 Hypomagnesemia; E83.39 Other disorders of phosphorus metabolism; Z88.8 Allergy status to other drugs, medicaments and biological substances; Z79.899 Other long term (current) drug therapy; F32.9 Major depressive disorder, single episode, unspecified; Z98.890 Other specified postprocedural states; B95.2 Enterococcus as the cause of diseases classified elsewhere; W19.XXXA Unspecified fall, initial encounter; Y92.099 Unspecified place in other non-institutional residence as the place of occurrence of the external cause; Z80.8 Family history of malignant neoplasm of other organs or systems; Z66 Do not resuscitate
CPT/HCPCS: 36415; 71045-TC; 73502; 74018; 80048-TC; 80053-TC; 80061-TC; 80076-TC; 81000-TC; 83735-TC; 83880; 84100-TC; 84443-TC; 84484-TC; 85025-TC; 87081-TC; 87086-TC; 87186-TC; 92526; 92611-TC; 97116-TC; 97530-TC; G0378; J0696; J2405; J3480; J7030; J7050; J7060